=== PATIENT | male | born 1960 | race Caucasian/White ===

== ENCOUNTER 2023-06-30 16:32 | Emergency (ER) | payer SELFPAY ==
[~2023-06-30] VITALS: Ht 180.3 cm; Wt 72.6 kg
[~2023-06-30 16:32] MED LIST: ATARAX25 MG PO; KEFLEX500 MG PO; KENALOG0.1% TP; PREDNICOT20 MG PO; PROTONIX40 MG/PACK PO; ZOVIRAX400 MG PO
[2023-06-30 17:15] LABS: BASO % 0.5 % (0.0-1.0); EOS # 0.1 10*3/uL (0.0-0.4); HEMATOCRIT 44.7 % (42.0-52.0); LYMPH % 35.8 % (27.0-41.0); MEAN CELL VOLUME 90.1 fl (80.0-94.0); MEAN CORPUSCULAR HGB 29.4 pg (27.0-31.0); MEAN CORPUSCULAR HGB CONC 32.7 g/dl (33.0-37.0); MEAN PLATELET VOLUME 8.3 fl (9.6-12.3); MONO # 1.1 10*3/uL (0.1-1.0); NEUT # 2.4 10*3/uL (2.3-7.9); NEUT % 42.5 % (47.0-73.0); PLATELET COUNT AUTOMATED 245 10*3/uL (130-400); RED BLOOD COUNT 4.96 10*6/uL (4.50-5.90); WHITE BLOOD COUNT 5.6 10*3/uL (4.8-10.8)
[2023-06-30 17:33] LABS: BUN 16 mg/dl (9-23); CHLORIDE 105 mmol/L (98-107); POTASSIUM 3.8 mmol/L (3.4-5.1)
[2023-06-30] MEDS ORDERED: LISINOPRIL5 MG PO (17:37)
[2023-06-30] MEDS ORDERED: LISINOPRIL 5 MG TAB PO ONE (17:40)
== END 2023-06-30 17:48 | disposition left against medical advice (07) ==
LOC: ED 16:32
PROVIDERS: Nurse Practitioner Family
DX: I10 Essential (primary) hypertension (principal); Z53.29 Procedure and treatment not carried out because of patient's decision for other reasons; Z88.0 Allergy status to penicillin; F10.10 Alcohol abuse, uncomplicated; E83.41 Hypermagnesemia; F12.90 Cannabis use, unspecified, uncomplicated; F11.10 Opioid abuse, uncomplicated